=== PATIENT | female | born 1965 | race Caucasian/White ===

== ENCOUNTER 2022-12-03 21:08 | Emergency (ER) | payer OTHER ==
[~2022-12-03] VITALS: Ht 185.4 cm; Wt 95.3 kg
[2022-12-03] MEDS ORDERED: ALBUTEROL SULFATE 2.5 MG/3 ML NEBU ONE (22:13)
[2022-12-03] MEDS ORDERED: IPRATROPIUM BROMIDE 0.5 MG/2.5 ML NEBU ONE (22:13)
[2022-12-03] MEDS ORDERED: IPRATROPIUM BROMIDE 0.5 MG/2.5 ML NEBU NEB ONE (22:15)
[2022-12-03] MEDS ORDERED: ALBUTEROL SULFATE 2.5 MG/3 ML NEBU NEB ONE (22:15)
[2022-12-03 22:22] VITALS: BP 134/76
== END 2022-12-03 22:23 | disposition left against medical advice (07) ==
LOC: ER 21:12
DX: R07.89 Other chest pain (principal); Z53.29 Procedure and treatment not carried out because of patient's decision for other reasons
CPT/HCPCS: 71045; 93005; A4663; J3590